=== PATIENT | female | born 1980 | race Caucasian/White ===

== ENCOUNTER → 2021-02-20 | Day surgery (SDC) | payer OTHER ==
[2021-02-19 15:45] LABS: Absolute Lymphocytes (CBC) 1.8 K/uL (0.7-4.9); Basophils % 0.5 % (0-1.3); Hematocrit 40.2 % (36.0-45.0); Lymphocytes % 26.3 % (15.3-44.8); MPV 7.4 fL (7.6-11.3); RBC Red Blood Cell Count 4.45 M/uL (3.86-4.86)
[2021-02-19 15:59] LABS: Protime INR 0.95
[2021-02-19 16:01] LABS: Specific Gravity 1.025 (1.005-1.030)
[2021-02-19 16:02] LABS: Urine Appearance CLEAR (Clear); Urine Color YELLOW (Yellow)
[2021-02-19 16:03] LABS: Urine Bilirubin NEGATIVE (Negative); Urine Blood NEGATIVE (Negative); Urine Glucose NEGATIVE (Negative); Urine Microscopic Reflex ORDER UMIC; Urine Protein NEGATIVE (Negative); Urine Specific Gravity 1.025 (1.005-1.030); Urine Urobilinogen 0.2 mg/dL (0.2-1.0)
[2021-02-19 16:15] LABS: Urine Bacteria <20 /HPF (<20); Urine RBC <5 /HPF (NONE SEEN)
[~2021-02-20] MED LIST: ACETAMINOPHEN 500 MG TAB ONE; ACETAMINOPHEN 500 MG TAB PO ONE; CEFAZOLIN/SWI 2gm 2 GM/20 ML SYR ONE; CELECOXIB 100 MG CAPSULE ONE; CELECOXIB 100 MG CAPSULE PO ONE; FENTANYL CITR 100 MCG/2 ML ONE; KETOROLAC 30 MG/ML INJ ONE; LIDOCAINE 1% MPF 5 ML VIAL ONE; MIDAZOLAM HCL 2 MG/2 ML INJ ONE; NA CHLORIDE 0.9% 1,000 ML ONE; ONDANSETRON 4 MG/2 ML VIAL ONE; Ringers Lactate 1,000 ML IV ONE; SILVER NITRATE 1 APPL TOP ONE; dexAMETHasone 10 MG/ML VIAL ONE; propofoL 200 MG/20 ML VIAL IV ONE
[2021-02-20 08:32] VITALS: O2SAT 100
--- NOTE | 2021-02-20 10:37 | DS ---
The patient underwent general anesthesia with procedures performed hysteroscopy, dilation of cervix, MyoSure and NovaSure endometrial ablation. Blood loss was less than 25 cc. The patient had received 2 g of Ancef prior to the procedure. The procedure went smoothly. The patient will be observed for about 2 hours postoperatively and then dismissed. She is to report any temperature elevation of 100 degrees or greater, severe pain, heavy bleeding, or any other type of abnormalities. She will be se en back in my office in 1 week for followup, sooner if any problems. She has number that she can jacky l at night if she has any questions or problems. The MyoSure curettings were sent to pathology for e xamination. LUIS/RAYSA Voice ID: [id number] Report ID: [id number]
--- NOTE | 2021-02-20 10:40 | OP ---
Surgeon: Parish Mayorga MD Trina Krueger is a 40-year-old female. Preoperative Diagnoses: Dysfunctional uterine bleeding, biopsy showed secretory endometrium and poly ps. No signs of malignant or premalignant lesions. Indication: Full preoperative counseling concerning procedure and possible complications including i nfection; blood loss; anesthetic complications; injury to bladder, bowel, ureter; postoperative compl ications; clots in legs; pneumonia. The patient knows full well cannot guarantee the efficacy of the procedure or long-term affects. Anesthesia: General anesthesia endotracheal intubation. Procedure In Detail: Time-out was performed. The patient was placed in the dorsal lithotomy positio n. Tenaculum was placed on the anterior cervical lip. The uterus sounded to 8 cm. Hysteroscopy dem onstrated a fluffy endometrium, but otherwise no obvious polyps and no obvious fibroids. MyoSure dev ice was introduced and MyoSure procedure was performed. Tissue removed was sent to pathology. After MyoSure, the NovaSure endometrial ablation was performed. The settings were 6 on the length 3.8 on the width, power setting 125 after activation 50 seconds of procedure. Tenaculum dozier were cauteriz ed with silver nitrate. Blood loss was less than 25 cc. The patient tolerated all procedures well. Had been given 2 g of Ancef prior to the procedure. Transferred to the recovery room, will be monit ored for an hour there, and then sent to day surgery. Final Diagnoses: Dysfunctional uterine bleeding, hysteroscopy, dilation, MyoSure, curettage, endomet rial ablation. LUIS/RAYSA Voice ID: [id number] Report ID: [id number]
[2021-02-20 10:57] VITALS: TEMP 96.3
[2021-02-20 10:58] VITALS: BP 96/68
--- NOTE | 2021-02-20 12:04 | PREOPHP ---
Date of Admission: 02/20/2021 History Of Present Illness: 40-year-old female with dysfunctional uterine bleeding. Endo metrial biopsy showing benign tissue with possibility of endometrial polyps. Ultrasound shows possib le intramural fibroids, which are doubtful of any significance in her bleeding. Options have been di scussed including control pills, IUD, Depo-Provera and ablation. The patient has chosen to go with the ablation. She cannot actually take control pills because she smokes. Family History: Hypertension in mother and grandmother. Stroke in paternal grandmother. Diabetes i n the maternal grandmother and on the father's side of the family. Myocardial infarction in maternal grandmother. Cancer of throat in father. Physical Examination: HEENT: Clear. Pupils equal, round, and reactive to light and accommodation. Conjunctivae well perf used. No oral, lingual, or buccal lesions. Chest and Lungs: Clear. Heart: Without murmurs, thrills, heaves, or rubs. Breasts: Without masses on previous visits. Abdomen: Normal without any organomegaly. Extremities: Clear. Pelvic: Uterus is upper normal size. Both adnexa clear. Pap smears have been normal. The patient as stated does smoke and is vaping at this point to try to give up smoking. We will proc eed with hysteroscopy, MyoSure and ablation as an attempt to control her cycles. LUIS/RAYSA Voice ID: [id number]
== END ==
LOC: OR 06:18
PROVIDERS: ATTEND Specialist
PROC: 0U5B8ZZ Destruction of Endometrium, Via Natural or Artificial Opening Endoscopic (ICD-10-PCS; principal; 2021-02-20 07:30)
PROC: 0UDB7ZX Extraction of Endometrium, Via Natural or Artificial Opening, Diagnostic (ICD-10-PCS; 2021-02-20 07:30)
DX: N93.8 Other specified abnormal uterine and vaginal bleeding (principal); Z20.822 Contact with and (suspected) exposure to COVID-19
CPT/HCPCS: 85025; 36415; 81025; 85610; 88305; 85730; 58563; U0003; J2704; J2250; J3010; J1100; J0690; J7120; J7030; J2405; 81003; 81015